=== PATIENT | male | born 1955 | race Caucasian/White ===

== ENCOUNTER 2018-12-19 11:51 | Emergency (ER) | payer MEDICARE, MEDICAID ==
[~2018-12-19] VITALS: Ht 182.9 cm; Wt 98.4 kg
[2018-12-19 12:18] LABS: URINE BILIRUBIN NEGATIVE (Negative); URINE BLOOD NEGATIVE (Negative); URINE CLARITY CLEAR; URINE COLOR YELLOW; URINE GLUCOSE-RANDOM NEGATIVE (Negative); URINE KETONES NEGATIVE (Negative); URINE LEUKOCYTES-REFLEX NEGATIVE (Negative); URINE NITRITE-REFLEX NEGATIVE (Negative); URINE PROTEIN TRACE (Negative)
[2018-12-19 12:19] LABS: ABSOLUTE EOSINOPHILS 0.1 thou/uL (0.0-0.7); ABSOLUTE LYMPHOCYTES 1.1 thou/uL (0.8-5.3); ABSOLUTE MONOCYTES 0.4 thou/uL (0.0-1.2); ABSOLUTE NEUTROPHILS 2.9 thou/uL (1.6-8.1); BASOPHILS 0.5 %; EOSINOPHILS 1.2 %; HEMATOCRIT 42.1 % (42.0-52.0); HEMOGLOBIN 14.5 gm/dL (14.0-18.0); LYMPHOCYTES 24.3 %; MCH 32.2 pg (26.0-34.0); MCHC 34.4 g/dL (28.0-37.0); MCV 93.7 fL (80.0-100.0); MONOCYTES 9.3 %; MPV 8.9 fl. (7.2-11.1); NUCLEATED RBCS 0 /100WBC; PLATELET COUNT* 137 thou/uL (150-400); POLYS 64.7 %; RBC 4.49 mil/uL (4.50-6.00); RDW-CV 12.7 % (10.5-14.5); WBC 4.5 thou/uL (4.0-11.0)
[2018-12-19 12:24] LABS: CALCIUM 8.6 mg/dL (8.5-10.1); CREATININE 1.1 mg/dL (0.6-1.3); POTASSIUM 3.5 mmol/L (3.5-5.1)
[2018-12-19 12:26] LABS: AMP/METHAMP Negative (Negative); BARBITURATES Negative (Negative); BENZODIAZEPINES Negative (Negative); COCAINE Negative (Negative); METHADONE Negative (Negative); OPIATES Negative (Negative); PCP Negative (Negative); THC Negative (Negative)
[2018-12-19 12:29] LABS: ALBUMIN 3.8 g/dL (3.4-5.0); TOTAL BILIRUBIN 0.5 mg/dL (<0.1-1.0); TOTAL PROTEIN 7.3 g/dL (6.4-8.2)
--- NOTE | 2018-12-19 13:48 | NUR ---
NOTIFIED BY ROSY/BROOK THAT PT.HERE WITH AMS. HE HAS HAD DEMENTIA FOR 2 YRS BUT IS MARKEDLY WORSE. SEE . PT.LIVES ALONE AND HAS NO FAMILY. HIS SUPERVISOR FABRICATION GOES BY EACH DAY TO MAKE SURE HE TAKES HIS MEDICATION AND MAKES SURE HE HAS FOOD. HE CANNOT TAKE CARE OF HIM MORE THAN THAT, HOWEVER,PER ROSY. WHILE WORK UP BEING DONE, PT.LEFT AMA.
[2018-12-19 14:34] VITALS: BP 134/77
== END 2018-12-19 14:35 | disposition left against medical advice (07) ==
LOC: M.ERS 11:51
PROVIDERS: Personal Emergency Response Attendant
DX: R41.82 Altered mental status, unspecified (principal)

== ENCOUNTER 2018-12-19 16:10 | Emergency (ER) | payer MEDICARE, MEDICAID ==
[~2018-12-19] VITALS: Ht 185.4 cm; Wt 90.7 kg
[2018-12-19 19:05] VITALS: BP 117/57
== END 2018-12-19 19:06 | disposition still patient (30) ==
LOC: M.ERS 16:10
DX: R41.82 Altered mental status, unspecified (principal)

== ENCOUNTER 2018-12-19 20:20 | Emergency (ER) | payer MEDICARE, MEDICAID ==
[~2018-12-19] VITALS: Ht 182.9 cm; Wt 90.7 kg
[2018-12-19 23:28] VITALS: BP 149/72
== END 2018-12-19 23:30 ==
LOC: M.ERS 20:20
DX: F22 Delusional disorders (principal)